=== PATIENT | female | born 1970 | race African-American/Black ===

== ENCOUNTER 2020-05-13 04:06 | Observation (INO) ==
[2020-05-13] MEDS ORDERED: FAMOTIDINE 20 MG/2 ML VIAL IV STA (04:42)
[2020-05-13] MEDS ORDERED: methylPREDNISolone SOD SUC 125 MG/2 ML VIAL IV STA (04:42)
[2020-05-13] MEDS ORDERED: diphenhydrAMINE 50 MG/1 ML VIAL IV STA (04:42)
[2020-05-13 05:15] LABS: Basophils % 0.2 % (0.0-0.8); Eosinophils # 0.6 10*3/uL (0.0-0.87); Eosinophils % 6.5 % (0.00-10.9); Hematocrit 45.9 VOL% (35.7-47.0); Hemoglobin 14.1 GM/DL (12.0-16.0); Immature Granulocytes % 0.4 %; Immature Granulocytes Absolute 0.04 #; Lymphocytes % 20.2 % (21.3-54.2); Mean Corpuscular HGB Conc 30.7 GM/DL (32-36); Mean Corpuscular Volume 96.8 FL (87-102); Mean Platelet Volume 11.2 FL (9.6-12.0); Monocytes % 8.6 % (1.7-12.7); Neutrophils % 64.1 % (38.7-73.9); Platelet Count 270 T/CUMM (130-400); Red Blood Count 4.74 MC/CUMM (3.8-5.5); Red Cell Distribution Width 14.8 % (9.3-17.3); White Blood Count 9.8 T/CUMM (4-12)
[2020-05-13 05:36] LABS: Albumin 3.6 G/DL (3.4-5.0); Bilirubin,Total 0.7 MG/DL (0.2-1.0); Calcium 10.2 MG/DL (8.5-10.1); Osmolality,Calculated 274.5 MOS/KG (273-304); Total Protein 7.3 G/DL (6.4-8.3)
[2020-05-13] MEDS ORDERED: GLUCAGON 1 MG VIAL IM PRN (05:50)
[2020-05-13] MEDS ORDERED: DEXTROSE 50% 25 GM/50 ML VIAL IV PRN (05:50)
[2020-05-13] MEDS: FAMOTIDINE 20 MG TABLET PO SCH ×2 (08:38→21:33)
[2020-05-13] MEDS: ENOXAPARIN 40 MG/0.4 ML SYRINGE SUBCUT SCH (08:40)
[2020-05-13] MEDS: diphenhydrAMINE 25 MG/10 ML UDCUP PO PRN ×2 (11:26→18:35)
[2020-05-13] MEDS ORDERED: METOPROLOL TARTRATE 5 MG/5 ML VIAL IV ONE (14:39)
[2020-05-13] MEDS: methylPREDNISolone SOD SUC 40 MG/1 ML VIAL IV SCH (21:33)
[2020-05-14 04:29] LABS: Basophils % 0.2 % (0.0-0.8); Eosinophils % 0.1 % (0.00-10.9); Hematocrit 46.4 VOL% (35.7-47.0); Hemoglobin 14.3 GM/DL (12.0-16.0); Immature Granulocytes % 0.6 %; Immature Granulocytes Absolute 0.12 #; Lymphocytes # 1.3 10*3/uL (1.4-4.0); Lymphocytes % 7.2 % (21.3-54.2); Mean Corpuscular HGB Conc 30.8 GM/DL (32-36); Mean Corpuscular Volume 97.5 FL (87-102); Mean Platelet Volume 11.5 FL (9.6-12.0); Monocytes % 1.1 % (1.7-12.7); Neutrophils % 90.8 % (38.7-73.9); Platelet Count 265 T/CUMM (130-400); Red Blood Count 4.76 MC/CUMM (3.8-5.5); Red Cell Distribution Width 14.6 % (9.3-17.3); White Blood Count 18.6 T/CUMM (4-12)
[2020-05-14 04:42] LABS: Calcium 10.8 MG/DL (8.5-10.1); Osmolality,Calculated 272.8 MOS/KG (273-304)
[2020-05-14 07:10] VITALS: BP 143/93
[2020-05-14 08:12] LABS: Anisocytosis 1+; Band Neutrophils 2 % (0-10); Lymphocytes 12 % (20-55); Macrocytosis 1+; Platelet Estimate Normal; Segmented Neutrophils 84 % (50-85); Total Cells Counted 100
[2020-05-14] MEDS: methylPREDNISolone SOD SUC 40 MG/1 ML VIAL IV SCH (08:39)
[2020-05-14] MEDS: ENOXAPARIN 40 MG/0.4 ML SYRINGE SUBCUT SCH (08:39)
[2020-05-14] MEDS: FAMOTIDINE 20 MG TABLET PO SCH (08:39)
[2020-05-14] MEDS ORDERED: CETIRIZINE 10 MG TABLET PO SCH (09:00)
== END 2020-05-14 11:15 | disposition home or self-care (01) ==
LOC: N.ED 04:06 → N.EDINP 04:06 → SUATTDRO 05:49 → N.5E 07:18
PROVIDERS: ADMIT Internal Medicine; ATTEND Internal Medicine